=== PATIENT | female | born 1995 | race Caucasian/White ===

== ENCOUNTER 2017-10-25 00:49 | Day surgery (SDC) | payer OTHER ==
[~2017-10-25] VITALS: Ht 170.2 cm; Wt 73.5 kg
[2017-10-25] MEDS ORDERED: FAMOTIDINE 20 MG TAB PO ONE (06:00)
[2017-10-25] MEDS ORDERED: LIDOCAINE/SOD BICARB 8.4% SYR ID ONE (06:00)
[2017-10-25] MEDS ORDERED: MIDAZOLAM 2 MG/2 ML VIAL IVP PRN (06:00)
[2017-10-25] MEDS ORDERED: NORMOSOL R SOLN(*) 1000 ML BAG 1,000 ML IV PRN (06:00)
[2017-10-25 06:25] VITALS: BP 123/88
[2017-10-25] MEDS ORDERED: CLINDAMYCIN(*) 900 MG/NS 50 ML 50 ML IVPB ONE (06:30)
[2017-10-25] MEDS ORDERED: CELECOXIB 200 MG CAP PO ONE (06:30)
[2017-10-25] MEDS ORDERED: fentaNYL CITR 100 MCG/2 ML AMP ONE ×2 (06:37→07:09)
[2017-10-25] MEDS ORDERED: DEXAMETHASONE SOD 4 MG/ML VIAL ONE (06:37)
[2017-10-25] MEDS ORDERED: LIDOCAINE MPF 1% 5 ML VIAL ONE (06:37)
[2017-10-25] MEDS ORDERED: ONDANSETRON 4 MG/2 ML VIAL ONE (06:37)
[2017-10-25] MEDS ORDERED: PROPOFOL EMUL(*) 10MG/ML 20 ML 20 ML ONE (06:37)
[2017-10-25] MEDS ORDERED: KETAMINE HCL 200 MG/20 ML MDV ONE (06:38)
[2017-10-25] MEDS ORDERED: ROPIVACAINE 0.2% 20 ML VIAL ONE (06:41)
[2017-10-25] MEDS ORDERED: KETOROLAC 30 MG/ML VIAL ONE (07:23)
[2017-10-25] MEDS ORDERED: HYDR-4309 PO (07:41)
[2017-10-25] MEDS ORDERED: LACTATED RINGER 3000 ML BAG IR ONE (07:49)
[2017-10-25 08:20] VITALS: BP 105/79
[2017-10-25] MEDS ORDERED: APAP/HYDROCODONE 325/5 TAB ONE (08:21)
[2017-10-25 08:39] VITALS: BP 105/70
[2017-10-25 08:42] VITALS: BP 119/87
--- NOTE | 2017-10-25 11:39 | OPERATIVE REPORT 1 ---
EVENT DATE: October 25, 2017 SURGEON: Manfred Houston MD ANESTHESIOLOGIST: Magdi Verma MD ANESTHESIA: General, LMA REVIEW MANAGER: Leon Candelario PA-C PREOPERATIVE DIAGNOSIS Right knee cartilage damage and a large plica and synovitis. POSTOPERATIVE DIAGNOSIS Right knee cartilage damage and a large plica and synovitis. PROCEDURE PERFORMED Right knee arthroscopic chondroplasty, synovectomy and plicectomy off the medial and lateral side. FINDINGS The patient had some torn cartilage on the outside of the lateral femoral condyle needing a chondroplasty and also a large medial and lateral plica that was giving her irritation over the front part of the knee. ESTIMATED BLOOD LOSS Minimal. DRAINS None. COMPLICATIONS None. IMPLANTS None. SPECIMENS None. TOURNIQUET TIME 19 minutes. INDICATIONS AND HISTORY This patient is a 22-year-old female that presented to my clinic for evaluation of knee pain and irritation associated with the right knee. She continued to have pain and irritation despite conservative management and we tried all conservative and MRI indicated that she may have a plica associated with it. She had thickening and irrigation associated with the front part and so she wanted to go ahead with a plicectomy, chondroplasty and synovectomy in the near future. We went over the risks and benefits associated with this. Informed consent was obtained at the last clinic visit. We talked how there is no guarantee that we can make it better and she may have a little bulging of the skin areas and also some issues associated with the incisions associated with the plicectomy. DESCRIPTION OF PROCEDURE As the patient was brought into the operating room, she and the procedure were both verified. She was placed supine on the operating table and induced and intubated by anesthesia. The right lower extremity was then prepped and draped in the usual fashion. A timeout was observed, verifying the correct patient for the procedure. The standard incisions were made over the anterior aspect of the knee. The scope was inserted into the lateral site after inflation of the tourniquet. We were able to then performed a diagnostic arthroscopy, where there was noted to be a significant amount of irritated tissue over the front part of the knee and a large plical band. Off the medial side, I was able to remove this with the suction shaver and clean up this area in order to then relieve the pressure on the medial femoral condyle. There was some irritation on the medial side of the medial femoral condyle and there was a rubbing from this band of tissue, but once we removed this there was no signs of catching or locking associated with this. I then performed a little bit of a chondroplasty on the distal femoral condyle and also cleaned up the patellofemoral joint. Once in the medial compartment, I was able to visualize the medial meniscus without any difficulty. There was no signs of problems or issues associated with this. I probed it and saw no signs of problems. I then went into the notch where the ACL and PCL were stable to probe and then into the lateral compartment where there was a small fraying and irritation on the medial side of the lateral meniscus, but no signs of vanessa detachment and stable to probe. There was also some fissuring on the tibial plateau and so I then did a chondroplasty on this area where there were no signs of other problems after that. I then switched the portals and straightened the leg back out. I was viewing from the medial side and was able to remove a lot of the lateral irritated tissue in the plica fold over this area and the I was able to debride this area and perform a synovectomy and a small chondroplasty on the distal femoral condyle. I then removed all instrumentation, drained all fluid out of the knee, and then closed the portal sites with a 4-0 Monocryl in an interrupted subcuticular fashion. I then injected with Ropivacaine and then dressed with Steri-Strips, gauze 4 x4's and a soft dressing. The tourniquet was let down after about 19 minutes and the patient was awakened and extubated and transferred to the PACU in stable condition. CINDY
== END 2017-10-25 08:20 | disposition home or self-care (01) ==
LOC: OR 00:49
PROVIDERS: ATTEND Orthopaedic Surgery
DX: M67.51 Plica syndrome, right knee (principal); M65.9 Synovitis and tenosynovitis, unspecified
CPT/HCPCS: 29876; 81025; J1100; J1885; J2001; J2250; J2405; J2704; J2795; J3010; J3490